=== PATIENT | female | born 1960 | race Caucasian/White ===

== ENCOUNTER 2018-01-06 19:49 | Observation (INO) ==
[2018-01-06] MEDS ORDERED: Aspirin 81 MG TAB.CHEW PO ONE (19:55)
--- NOTE | 2018-01-06 20:07 | Emergency Department Note ---
Disposition Clinical Impression: Palpitations Chest pain Qualifiers: Chest pain type: unspecified Qualified Code(s): R07.9 - Chest pain, unspecified Disposition: Admitted As Inpatient Condition: Good Chest Pain HPI - General Chief Complaint: ED Chest Pain Stated Complaint: Chest Pain Time Seen by Provider: 01/06/18 19:54 Source: patient Mode of arrival: private vehicle Limitations: no limitations Vital Signs Reviewed: Yes Nursing Notes Reviewed: Yes - History of Present Illness HPI Narrative: 57-year-old female past medical history of hypertension, diabetes, hyperlipidemia who presents to the ER with a chief complaint of chest pain and palpitations. Reports that she woke up and went to work at 4 AM. Around 9 AM she experienced palpitations and dizziness and felt like she was going to pass out. She was sent home and reports she took a four-hour nap and his felt drained ever since. Reports intermittent pressure in her chest. Denies any recent illnesses. No dyspnea, diaphoresis, nausea or vomiting. Reports her last stress test was roughly 16 years ago. No prior history of coronary artery disease, DVT or pulmonary embolism. No other complaints. Pt complaint: chest pain Onset (ago): hour(s) Duration: intermittent Onset: during rest Pain Location: substernal Severity: mild Severity scale (1-10): 4 Pain Radiation: none Improves with: nothing Worsens with: nothing Associated symptoms: Denies: nausea, vomiting, diaphoresis, dyspnea Treatments prior to arrival chest pain: none - Related Data Home Medications Medication Instructions Recorded Confirmed Atorvastatin Calcium [Lipitor] 20 mg PO HS 02/21/16 01/06/18 Chlorthalidone 25 mg PO DAILY 02/21/16 01/06/18 Enalapril Maleate [Vasotec] 20 mg PO DAILY 02/21/16 01/06/18 Metformin HCl [Metformin HCl ER] 1,500 mg PO QPM 02/21/16 01/06/18 Ranitidine HCl [Heartburn Relief] 150 mg PO BID 02/21/16 01/06/18 Allergies Allergy/AdvReac Type Severity Reaction Status Date / Time Sulfa (Sulfonamide Allergy Hives Verified 10/29/16 18:14 Antibiotics) nitrofurantoin AdvReac Vomiting Verified 10/29/16 18:14 [From Macrobid] All systems ED: reviewed and negative except as stated. Constitutional: Denies: fever Cardiovascular: Reports: chest pain, palpitations Respiratory: Denies: cough, dyspnea Gastrointestinal: Denies: abdominal pain, nausea, vomiting Chest Pain PMH - Past Medical History Medical history: Reports: arthritis, diabetes, GERD, hyperlipidemia, hypertension, renal disease Surgical history: Reports: , cholecystectomy, orthopedic, other, other Psychiatric history: Reports: no psych history IMAGING ASSISTANT history: Reports: no IMAGING ASSISTANT history - Social History Smoking Status: Never smoker Alcohol use: Reports: none Drug use: Reports: none Physical Exam - General Limitations: no limitations General appearance: alert, in no apparent distress - Head Head exam: atraumatic, normocephalic - Eye Eye exam: Present: normal appearance - ENT ENT exam: normal exam - Neck Neck exam: Present: normal inspection, full ROM - Chest Chest inspection: Present: normal inspection, symmetric chest wall rise - Respiratory Respiratory exam: Present: normal lung sounds bilaterally - Cardiovascular Cardiovascular exam: Present: regular rate, normal rhythm, normal heart sounds - Abdominal Exam Abdominal exam: Present: soft, Non-Tender. Absent: tenderness - Extremities Exam Extremities exam: Present: normal inspection, full ROM - Expanded Upper Extremity Exam Shoulder exam: Present: normal inspection, full ROM Arm exam: Present: normal inspection, full ROM Elbow exam: Present: normal inspection, full ROM Forearm/Wrist exam: Present: normal inspection, full ROM Hand exam: Present: normal inspection, full ROM - Expanded Lower Extremity Exam Hip/Pelvis exam: Present: normal inspection, full ROM Upper leg exam: Present: normal inspection, full ROM Knee exam: Present: normal inspection, full ROM Lower leg exam: Present: normal inspection, full ROM Ankle exam: Present: normal inspection, full ROM Foot/toe exam: Present: normal inspection, full ROM - Skin Skin exam: Present: warm, dry Course Course Narrative: Patient seen and examined. Vital signs reviewed. We will get an EKG, chest x- ray as well as labs including troponin, TSH and electrolytes. Patient provided with aspirin here. Vital Signs Temperature 97.9 F 01/06/18 19:50 Pulse Rate 75 01/06/18 19:50 Respiratory Rate 18 01/06/18 19:50 Blood Pressure 167/76 01/06/18 19:50 O2 Sat by Pulse Oximetry 98 01/06/18 19:50 Temperature 97.9 F 01/06/18 19:50 Pulse Rate 75 01/06/18 19:50 Respiratory Rate 18 01/06/18 19:50 Blood Pressure 167/76 01/06/18 19:50 O2 Sat by Pulse Oximetry 98 01/06/18 19:55 Oxygen Delivery Oxygen Delivery Room Air Chest Pain - MDM Narrative Medical decision making narrative: 57-year-old female with palpitations and chest pain throughout today. EKG is nonischemic. Chest x-ray unremarkable. Labs reviewed no acute derangements. She will be admitted to the hospitalist service for chest pain rule out and palpitations. - Lab Data Lab results reviewed: Yes I reviewed the patient's lab results. Result diagrams: 01/06/18 20:14 01/06/18 20:14 Lab Results 01/06/18 01/06/18 01/06/18 Range/Units 20:14 20:14 20:14 WBC 9.9 (4.3-11.1) K/mcL RBC 4.03 (3.82-4.97) M/mcL Hgb 12.1 (11.5-15.4) g/dL Hct 32.8 L (35.3-44.9) % MCV 81.4 L (83.0-100.0) fL MCH 30.0 (28.0-33.3) pg MCHC 36.9 H (31.6-35.5) g/dL RDW 12.2 (11.5-14.5) % Plt Count 335 (140-400) K/mcL MPV 9.9 (9.4-12.4) fL Immature Gran % 0.5 (0-4) % Seg Neutrophils % 46.0 % Lymphocytes % 39.2 % Monocytes % 9.3 % Eosinophils % 3.5 % Basophils % 1.5 % Neutrophils # 4.5 (1.6-8.9) K/mcL Lymphocytes # 3.9 (0.6-4.6) K/mcL Monocytes # 0.9 (0.0-1.3) K/mcL Eosinophils # 0.4 (0.0-0.6) K/mcL Basophils # 0.2 (0.0-0.2) K/mcL PT 11.0 (9.4-12.1) Seconds INR 1.0 APTT 24.9 L (26.0-36.0) Seconds Sodium (136-145) mEq/L Potassium (3.5-5.1) mEq/L Chloride (98-107) mEq/L Carbon Dioxide (23-29) mEq/L BUN (6-20) mg/dL Creatinine (0.60-1.20) mg/dL Est GFR ( Amer) (> 60) Est GFR (Non-Af Amer) (> 60) BUN/Creatinine Ratio (6-26) Glucose (70-105) mg/dL Calculated Osmolality (280-300) Calcium (8.6-10.3) mg/dL Troponin I (< 0.04) ng/mL B-Natriuretic Peptide 10 (Less than 100) pg/mL TSH (0.340-5.600) mcIU/mL 01/06/18 01/06/18 Range/Units 20:14 20:14 WBC (4.3-11.1) K/mcL RBC (3.82-4.97) M/mcL Hgb (11.5-15.4) g/dL Hct (35.3-44.9) % MCV (83.0-100.0) fL MCH (28.0-33.3) pg MCHC (31.6-35.5) g/dL RDW (11.5-14.5) % Plt Count (140-400) K/mcL MPV (9.4-12.4) fL Immature Gran % (0-4) % Seg Neutrophils % % Lymphocytes % % Monocytes % % Eosinophils % % Basophils % % Neutrophils # (1.6-8.9) K/mcL Lymphocytes # (0.6-4.6) K/mcL Monocytes # (0.0-1.3) K/mcL Eosinophils # (0.0-0.6) K/mcL Basophils # (0.0-0.2) K/mcL PT (9.4-12.1) Seconds INR APTT (26.0-36.0) Seconds Sodium 128 L (136-145) mEq/L Potassium 3.8 (3.5-5.1) mEq/L Chloride 95 L (98-107) mEq/L Carbon Dioxide 22 L (23-29) mEq/L BUN 21 H (6-20) mg/dL Creatinine 1.15 (0.60-1.20) mg/dL Est GFR ( Amer) 59 L (> 60) Est GFR (Non-Af Amer) 48 L (> 60) BUN/Creatinine Ratio 18 (6-26) Glucose 493 H (70-105) mg/dL Calculated Osmolality 291 (280-300) Calcium 9.0 (8.6-10.3) mg/dL Troponin I < 0.03 (< 0.04) ng/mL B-Natriuretic Peptide (Less than 100) pg/mL TSH 1.708 (0.340-5.600) mcIU/mL - Radiology Data Radiology results reviewed: Yes I reviewed the patient's radiology results. Chest X-Ray 01/06/18 19:55 IMPRESSION: No acute cardiopulmonary findings. D/ / Ton Coronado / Ton Coronado Interpreting Provider: Ton Coronado - EKG Data EKG attestation: Yes I reviewed and interpreted this EKG. EKG results narrative: EKG demonstrates sinus rhythm with a rate of 98 bpm. Normal axis. Normal intervals. Normal R-wave progression. No gross ST elevations or depressions. No acute ischemic findings. No significant changes from previous EKG dated . Heart Score - Score History: Moderately Suspicious EKG: Normal Age: 45-65 Risk Factors: Equal/Greater than 3 risk factor or history of atherosclerotic disease Troponin: Less than normal limit HEART Score Total: 4
[2018-01-06 20:27] LABS: Basophils # 0.2 K/mcL (0.0-0.2); Basophils % 1.5 %; Eosinophils # 0.4 K/mcL (0.0-0.6); Eosinophils % 3.5 %; Hematocrit 32.8 % (35.3-44.9); Hemoglobin 12.1 g/dL (11.5-15.4); Immature Granulocytes % 0.5 % (0-4); Lymphocytes # 3.9 K/mcL (0.6-4.6); Lymphocytes % 39.2 %; Mean Corpuscular HGB Conc 36.9 g/dL (31.6-35.5); Mean Corpuscular Volume 81.4 fL (83.0-100.0); Mean Platelet Volume 9.9 fL (9.4-12.4); Monocytes # 0.9 K/mcL (0.0-1.3); Monocytes % 9.3 %; Neutrophils # 4.5 K/mcL (1.6-8.9); Platelet Count 335 K/mcL (140-400); Red Blood Count 4.03 M/mcL (3.82-4.97); Red Cell Distribution Width 12.2 % (11.5-14.5)
--- NOTE | 2018-01-06 20:28 | Emergency Department Note ---
Disposition Clinical Impression: ACS (acute coronary syndrome) Disposition: Admitted As Inpatient Forms: ED Satisfaction Letter General Adult HPI - General Chief complaint: ED Chest Pain Stated complaint: Chest Pain Time Seen by Provider: 01/06/18 19:54 Source: patient Mode of arrival: private vehicle Limitations: no limitations - History of Present Illness Pain Scale: 4 - Related Data Home Medications Medication Instructions Recorded Confirmed Atorvastatin Calcium [Lipitor] 20 mg PO HS 02/21/16 02/21/16 Chlorthalidone 25 mg PO DAILY 02/21/16 02/21/16 Cyclobenzaprine [Flexeril] 10 mg PO HS PRN 02/21/16 02/21/16 Diclofenac Sodium [Voltaren] 1 appl TP TID PRN 02/21/16 02/21/16 Enalapril Maleate [Vasotec] 40 mg PO DAILY 02/21/16 02/21/16 Exenatide Microspheres [Bydureon] 2 mg SQ QWEEK 02/21/16 02/21/16 Gabapentin [Neurontin] 600 mg PO HS 02/21/16 02/21/16 GlipiZIDE [Glipizide Xl] 5 mg PO DAILY 02/21/16 02/21/16 Metformin HCl [Metformin HCl ER] 1,500 mg PO PMHY 02/21/16 02/21/16 Ranitidine HCl [Heartburn Relief] 150 mg PO BID 02/21/16 02/21/16 traMADol [Ultram] 50 mg PO Q6H PRN 02/21/16 02/21/16 Previous Rx's Medication Instructions Recorded levoFLOXacin [Levaquin] 500 mg PO DAILY #3 tablet 10/29/16 Allergies Allergy/AdvReac Type Severity Reaction Status Date / Time Sulfa (Sulfonamide Allergy Hives Verified 10/29/16 18:14 Antibiotics) nitrofurantoin AdvReac Vomiting Verified 10/29/16 18:14 [From Macrobid] Constitutional: Denies: fever Cardiovascular: Reports: chest pain, palpitations Respiratory: Denies: cough, dyspnea Gastrointestinal: Denies: abdominal pain, nausea, vomiting Past Medical History - Past Medical History Medical history: Reports: arthritis, diabetes, GERD, hyperlipidemia, hypertension, renal disease Surgical history: Reports: , cholecystectomy, orthopedic, other, other Psychiatric history: Reports: no psych history BOTTLE FEEDER history: Reports: no BOTTLE FEEDER history - Social History Smoking Status: Never smoker Alcohol use: Reports: none Drug use: Reports: none Physical Exam - General Limitations: no limitations General appearance: alert, in no apparent distress Course - Reevaluation(s) Reevaluation #1: Attestation Note I examined this patient and my medical decision-making was reviewed with the Resident Physician, JHON CHAMBERS. I agree with the documented findings, disposition and treatment plan as described except to the extent set forth below. I have personally performed a face to face evaluation on this patient. I have reviewed and agree with the care plan. Briefly: 55-year-old female heart score 4 presents with chest pain. Last stress was 15 years ago. EKG shows nonspecific ST-T changes but no acute ischemic changes when compared to an old EKG. Patient is screening labs including troponin and chest x-ray will be getting aspirin admission anticipated disposition pending Time: 20:26 Vital Signs Temperature 97.9 F 01/06/18 19:50 Pulse Rate 75 01/06/18 19:50 Respiratory Rate 18 01/06/18 19:50 Blood Pressure 167/76 01/06/18 19:50 O2 Sat by Pulse Oximetry 98 01/06/18 19:50 Temperature 97.9 F 01/06/18 19:50 Pulse Rate 75 01/06/18 19:50 Respiratory Rate 18 01/06/18 19:50 Blood Pressure 167/76 01/06/18 19:50 O2 Sat by Pulse Oximetry 98 01/06/18 19:50 Oxygen Delivery Oxygen Delivery Room Air
[2018-01-06 20:39] LABS: Activated Partial Thrombo Time 24.9 Seconds (26.0-36.0)
[2018-01-06 20:52] LABS: BUN/Creatinine Ratio 18 (6-26); Blood Urea Nitrogen 21 mg/dL (6-20); Carbon Dioxide 22 mEq/L (23-29); Chloride 95 mEq/L (98-107); Glucose 493 mg/dL (70-105); Osmolality,Calculated 291 (280-300); Potassium 3.8 mEq/L (3.5-5.1); Sodium 128 mEq/L (136-145); eGFR For African Americans 59 (> 60); eGFR For Non-African Americans 48 (> 60)
[2018-01-06 20:53] LABS: Troponin I < 0.03 ng/mL (< 0.04)
[2018-01-06] MEDS ORDERED: Acetaminophen 325 MG TABLET PO ONE (21:59)
[2018-01-07] MEDS ORDERED: Dextrose Gel 15 GM/37.5 ML TUBE PO PRN ×2 (00:04)
[2018-01-07] MEDS ORDERED: D5% in Water 1,000 ML IVC PRN (00:04)
[2018-01-07] MEDS ORDERED: *HR* Dextrose 50 % in Water (Syg) 50 ML SYRINGE IVP PRN (00:04)
[2018-01-07] MEDS ORDERED: Insulin LISPRO 300 UNITS/3 ML VIAL SQ SCH (00:15)
[2018-01-07] MEDS ORDERED: *HR* Enoxaparin 40 MG/0.4 ML SYRINGE SQ SCH (06:00)
--- NOTE | 2018-01-07 07:15 | Electrocardiograph Report ---
[place] [id number] Test Date: 2018-01-06 Pat Name: Geri Tilley Department: 102 Room: 3B43 Gender: F Java J[employer] Developer: Crystal : 1960 Requested By: Holden Flanagan Order Number: [id number] Reading MD: Eric Mejia Measurements Intervals Rhodes Rate: 98 P: 30 MS: 129 QRS: 16 QRSD: 101 T: 26 QT: 356 QTc: 411 Interpretive Statements SINUS RHYTHM POSSIBLE INFERIOR MYOCARDIAL INFARCTION, PROBABLY OLD Electronically Signed On 01-07-2018 7:14:06 EDT by Eric Mejia
[2018-01-07] MEDS ORDERED: Naloxone 0.4 MG/ML INJ IVP PRN (07:43)
[2018-01-07] MEDS ORDERED: Nitroglycerin 0.4 MG TAB.SUBL SL PRN (07:43)
--- NOTE | 2018-01-07 07:48 | Internal Med History&Physical ---
Date of Encounter: 01/07/18 Time of Encounter: 07:00 Internal Medicine - H&P: HPI Chief complaint: Chest pain Plans for Post Hospital Care: Home History of present illness: Ms. Tilley is a 57 year old female with pmh of hypertension, diabetes, hyperlipidemia presenting with complaints of chest pain that started yesterday morning around 4 am. she went to work and felt dizzy like she was going to pass out and went then subsequently went back home a couple of hours later. She noted she continued to have intermittent stabbing midsternal chest pain unreproducible to palpatin and her duaghter decided to bring her in. Chest pain is non radiating. Denies any nausea, vomiting or abdominal pain or any other acute symptoms Past Med Surg Social Fam HX - Past Medical History Medical history: arthritis, diabetes, GERD, hyperlipidemia, hypertension, renal disease Psychiatric history: no psych history - Past Surgical History Surgical History: , cholecystectomy, orthopedic, other, other - Social History Smoking Status: Never smoker Alcohol use: none Drug use: none - Family History Father Age: 68 Living Status: Hx Family Cardiac Disorders: Yes Internal Medicine - H&P: Meds Atorvastatin Calcium [Lipitor] 20 mg PO HS 02/21/16 [History] Chlorthalidone 25 mg PO DAILY 02/21/16 [History] Enalapril Maleate [Vasotec] 20 mg PO DAILY 02/21/16 [History] Metformin HCl [Metformin HCl ER] 1,500 mg PO QPM 02/21/16 [History] Ranitidine HCl [Heartburn Relief] 150 mg PO BID 02/21/16 [History] Aspirin 81 mg PO DAILY #30 tab.chew 01/07/18 [Rx] 3 Allergy/AdvReac Type Severity Reaction Status Date / Time Sulfa (Sulfonamide Allergy Hives Verified 10/29/16 18:14 Antibiotics) nitrofurantoin AdvReac Vomiting Verified 10/29/16 18:14 [From Macrobid] All Systems PM: A 10-system review of systems was performed and is negative for pertinent findings except as documented above in the HPI. - Constitutional Constitutional: no chills, no fever(s), no night sweats - EENT Eyes: no change in vision, no discharge, no pain, no photophobia Ears: no ear discharge, no ear pain, no tinnitus Nose, mouth and throat: no dysphagia, no nasal discharge, no neck pain, no sore throat - Cardiovascular Cardiovascular ROS IM: chest pain, lightheadedness, no diaphoresis, no dyspnea, no palpitations, no syncope Additional comments: admits to chest pain and lightheadedness - Respiratory Respiratory: no cough, no dyspnea, no wheezing, no excessive phlegm production - Gastrointestinal Gastrointestinal: no abdominal pain, no diarrhea, no hematemesis, no hematochezia, no melena, no nausea, no vomiting - Genitourinary Genitourinary: no change in urinary stream, no dysuria, no flank pain, no hematuria - Musculoskeletal Musculoskeletal ROS IM: no numbness, no tingling - Integumentary Integumentary IM: no rash, no unusual bruising - Neurological Neurological ROS: no confusion, no convulsions, no focal weakness, no numbness, no tingling, no tremor(s) - Hematologic/Lymphatic Hematologic/Lymphatic: no easy bruising - Constitutional Vitals: Temp Pulse Resp BP Pulse Ox 97.6 F 78 14 123/70 98 01/07/18 06:56 01/07/18 06:56 01/07/18 06:56 01/07/18 06:56 01/07/18 06:56 - Head Head exam: Present: atraumatic, normocephalic - Eye Eye exam: Present: PERRL, conjuntiva pink, sclera anicteric Pupils: Present: PERRL - Neck Neck exam general surgery: Present: supple, trachea midline. Absent: lymphadenopathy - Respiratory Respiratory exam: Present: CTAB. Absent: accessory muscle use, rales, rhonchi, wheezes - Cardiovascular Cardiovascular exam: Present: RRR, +S1, +S2. Absent: diastolic murmur, gallop, rubs, systolic murmur - GI/Abdominal GI/Abdominal exam: Present: normal bowel sounds, soft, no peritoneal signs. Absent: distended, tenderness - Extremities Exam Extremities exam: Present: warm, radial pulses palpable and symmetrical. Absent : calf tenderness, cyanotic, pedal edema - Neurological Exam Neurological exam: Present: CN II-XII intact, oriented X3, no focal deficits. Absent: pronater drift, facial droop, speech deficit - Skin Skin exam: Present: dry, intact Internal Med - H&P Results - Labs CBC & Chem 7: 01/06/18 20:14 01/06/18 20:14 Labs: Cardiac Enzymes 01/07/18 01/07/18 Range/Units 01:15 06:58 Troponin I < 0.03 < 0.03 (< 0.04) ng/mL - VTE Deep Vein Thrombosis/Pulmonary Embolism Present on Admission: No - Assessment and plan (1) Chest pain Current Visit: Yes Status: Acute Assessment and plan: Chest pain r/o SC. Pt has risk factors for CAD such as DM, hypertension, dyslipidemia. Start on aspirin, continue statin. Obtain 2D echo and nuclear stress test. Nitroglycerin prn pain Qualifiers: Chest pain type: unspecified Qualified Code(s): R07.9 - Chest pain, unspecified (2) Hypertension Current Visit: Yes Status: Acute Assessment and plan: Stable. continue home antihypertensives Qualifiers: Hypertension type: essential hypertension Qualified Code(s): I10 - Essential (primary) hypertension (3) Diabetes Current Visit: Yes Status: Acute Assessment and plan: Continue insulin sliding scale Qualifiers: Qualified Code(s): E11.9 - Type 2 diabetes mellitus without complications (4) Dyslipidemia Current Visit: Yes Status: Acute Assessment and plan: Continue statin - Time Spent With Patient Total time spent is greater than 50% in coordination of care (as documented) at patient's floor/unit and/or counseling patient:
[2018-01-07] MEDS ORDERED: Regadenoson 0.4 MG/5 ML SYRINGE IVP ONE (08:53)
[2018-01-07] MEDS ORDERED: Lisinopril 20 MG TABLET PO SCH (09:00)
[2018-01-07] MEDS ORDERED: Famotidine 20 MG TABLET PO SCH (09:00)
[2018-01-07] MEDS ORDERED: Aspirin 81 MG TAB.CHEW PO SCH (09:00)
[2018-01-07] MEDS: Insulin LISPRO 300 UNITS/3 ML VIAL SQ SCH ×2 (10:02→12:14)
[2018-01-07] MEDS ORDERED: Acetaminophen 325 MG TABLET PO PRN (10:23)
[2018-01-07 11:45] VITALS: BP 121/75
--- NOTE | 2018-01-07 14:07 | Discharge Summary ---
Orders not resulted at time of discharge: Pending orders 01/07/18 07:36 NM bola perf SPECT multi [NM] Routine EV echocardiogram Routine 01/08/18 04:00 Basic Metabolic Panel AM 0400 CBC [Complete Blood Count] [HEME] AM 04001/09/18 04:00 Basic Metabolic Panel AM 0400 CBC [Complete Blood Count] [HEME] AM 04001/10/18 04:00 Basic Metabolic Panel AM 0400 CBC [Complete Blood Count] [HEME] AM 04001/11/18 04:00 Basic Metabolic Panel AM 0400 CBC [Complete Blood Count] [HEME] AM 04001/12/18 04:00 Basic Metabolic Panel AM 0400 CBC [Complete Blood Count] [HEME] AM 04001/13/18 04:00 Basic Metabolic Panel AM 0400 CBC [Complete Blood Count] [HEME] AM 040 Date of Encounter: 01/07/18 Time of Encounter: 14:00 - Discharge Diagnosis (1) Chest pain Priority: Primary Status: Acute Assessment and Plan: 57 year old female came inn for substernal chest pain of 1 day duration. Has risk factors including htn, dyslipidemia and diabetes. Had a nuclear stress test which came back with no signs of ischemia. Was discharged home on aspirin. Counseled to f/u with cardiology Qualifiers: Chest pain type: unspecified Qualified Code(s): R07.9 - Chest pain, unspecified (2) Hypertension Priority: Secondary Status: Acute Qualifiers: Hypertension type: essential hypertension Qualified Code(s): I10 - Essential (primary) hypertension (3) Diabetes Priority: Secondary Status: Acute Assessment and Plan: Continue insulin sliding scale Qualifiers: Diabetes mellitus type: type 2 Diabetes mellitus complication status: without complication Qualified Code(s): E11.9 - Type 2 diabetes mellitus without complications (4) Dyslipidemia Priority: Secondary Status: Acute Assessment and Plan: Continue statin Hospital course: Ms. Tilley is a 57 year old female - Time Spent with Patient Total time spent providing and/or coordinating discharge services: - Discharge Medications Prescriptions: Aspirin 81 mg PO DAILY #30 tab.chew Home Medications: Atorvastatin Calcium [Lipitor] 20 mg PO HS 02/21/16 [History] Chlorthalidone 25 mg PO DAILY 02/21/16 [History] Enalapril Maleate [Vasotec] 20 mg PO DAILY 02/21/16 [History] Metformin HCl [Metformin HCl ER] 1,500 mg PO QPM 02/21/16 [History] Ranitidine HCl [Heartburn Relief] 150 mg PO BID 02/21/16 [History] Aspirin 81 mg PO DAILY #30 tab.chew 01/07/18 [Rx] Allergies/Adverse Reactions: 3 Allergy/AdvReac Type Severity Reaction Status Date / Time Sulfa (Sulfonamide Allergy Hives Verified 10/29/16 18:14 Antibiotics) nitrofurantoin AdvReac Vomiting Verified 10/29/16 18:14 [From Macrobid] Date of admission: 01/06/18 21:42 Primary care physician: Sera Olivarez - Constitutional Vitals: Temp Pulse Resp BP Pulse Ox 98.2 F 85 14 121/75 98 01/07/18 11:42 01/07/18 11:42 01/07/18 11:42 01/07/18 11:42 01/07/18 11:42 - Head Head exam: Present: atraumatic, normocephalic - Eye Eye exam: Present: PERRL, conjuntiva pink, sclera anicteric Pupils: Present: PERRL - Neck Neck exam general surgery: Present: supple, trachea midline. Absent: lymphadenopathy - Respiratory Respiratory exam: Present: CTAB. Absent: accessory muscle use, rales, rhonchi, wheezes - Cardiovascular Cardiovascular exam: Present: RRR, +S1, +S2. Absent: diastolic murmur, gallop, rubs, systolic murmur - GI/Abdominal GI/Abdominal exam: Present: normal bowel sounds, soft, no peritoneal signs. Absent: distended, tenderness - Extremities Exam Extremities exam: Present: warm, radial pulses palpable and symmetrical. Absent : calf tenderness, cyanotic, pedal edema - Neurological Exam Neurological exam: Present: CN II-XII intact, oriented X3, no focal deficits. Absent: pronater drift, facial droop, speech deficit - Skin Skin exam: Present: dry, intact - Patient Status Disposition: Home, Self-Care Condition: Good - Discharge Instructions Instructions: Chest Pain (DC) Follow Up With: Sera Tapia MD [Primary Care Provider] - 01/16/18 11:45 am Amy Flynn [Partnered Physician] - (cardiology office will call [facility] appointment) Forms: Work/School Release - VTE Deep Vein Thrombosis/Pulmonary Embolism Present on Admission: No
== END 2018-01-07 15:26 | disposition home or self-care (01) ==
LOC: 3BNU 19:49 → EMEROO 19:49 → 3BNU 23:09
PROVIDERS: ADMIT Internal Medicine; ATTEND Internal Medicine

== ENCOUNTER 2019-01-19 12:28 | Observation (INO) ==
--- NOTE | 2019-01-19 13:39 | Emergency Department Note ---
Disposition Clinical Impression: Lightheaded Nausea and vomiting Qualifiers: Vomiting type: unspecified Vomiting Intractability: non-intractable Qualified Code(s): R11.2 - Nausea with vomiting, unspecified Chest pain Qualifiers: Chest pain type: unspecified Qualified Code(s): R07.9 - Chest pain, unspecified Disposition: Admitted As Inpatient Time of Disposition: 15:59 General Adult HPI - General Chief complaint: ED Chest Pain Stated complaint: CP,"dizzy,vomiting" Time Seen by Provider: 01/19/19 13:36 Source: patient, family Mode of arrival: private vehicle Limitations: no limitations Nursing Notes Reviewed: Yes Vital Signs Reviewed: Yes - History of Present Illness HPI Narrative: Patient is a 58-year-old female with past medical history including coronary artery disease status post stent placement to the RCA in July 2018 on aspirin and Plavix, hypertension, diabetes mellitus type 2, presenting with chief complaint of chest pain and nausea and vomiting. Patient states for the past 3 days, she complains of nausea and multiple episodes of nonbilious nonbloody vomiting. She denies any abdominal pain, fevers or chills. She states every time she stands up to walk around she develops right-sided chest pain. She states that lasts for seconds. She also complains of lightheadedness and feeling like she is going to pass out. She states she has never felt this way before. She denies cough, fevers or chills, abdominal pain, diarrhea, blood in her stool, dysuria, weakness, paresthesias. Pain Scale: 0 - Related Data Home Medications Medication Instructions Recorded Confirmed Enalapril Maleate [Vasotec] 5 mg PO DAILY 02/21/16 01/19/19 Metformin HCl [Metformin ER 1,500 mg PO HS 02/21/16 01/19/19 Gastric] Ranitidine HCl [Heartburn Relief] 150 mg PO BID 02/21/16 01/19/19 Cyclobenzaprine [Flexeril] 10 mg PO HS 08/13/18 01/19/19 Tramadol HCl [Ultram] 50 mg PO TID PRN 08/13/18 01/19/19 Aspirin 81 mg PO DAILY 01/19/19 01/19/19 Atorvastatin [Lipitor] 40 mg PO HS 01/19/19 01/19/19 Chlorthalidone 25 mg PO DAILY 01/19/19 01/19/19 Clopidogrel [Plavix] 75 mg PO DAILY 01/19/19 01/19/19 Metoprolol [Lopressor] 12.5 mg PO BID 01/19/19 01/19/19 Allergies Allergy/AdvReac Type Severity Reaction Status Date / Time Sulfa (Sulfonamide Allergy Hives Verified 09/08/18 10:24 Antibiotics) nitrofurantoin AdvReac Vomiting Verified 09/08/18 10:24 [From Macrobid] All systems ED: reviewed and negative except as stated. Review of Systems: As Per HPI Constitutional: Denies: fever, chills Cardiovascular: Reports: chest pain Respiratory: Reports: dyspnea. Denies: cough Gastrointestinal: Reports: abdominal pain, nausea, vomiting. Denies: diarrhea Genitourinary: Denies: dysuria Musculoskeletal: Denies: back pain Past Medical History - Past Medical History Attestation: Yes The following information was validated with the patient. Source: patient Medical history: Reports: arthritis, diabetes, GERD, hyperlipidemia, hypertension, renal disease Surgical history: Reports: , cholecystectomy, orthopedic, other, other Psychiatric history: Reports: no psych history CROSSING WATCHMAN history: Reports: no CROSSING WATCHMAN history - Social History Smoking Status: Never smoker Alcohol use: Reports: none Drug use: Reports: none Physical Exam - General Limitations: no limitations General appearance: alert, in no apparent distress - Head Head exam: atraumatic, normocephalic - Eye Eye exam: Present: normal appearance, EOMI - ENT ENT exam: normal exam, normal oropharynx - Neck Neck exam: Present: normal inspection, trachea midline - Chest Chest inspection: Present: normal inspection, symmetric chest wall rise. Absent: tenderness - Respiratory Respiratory exam: Present: normal lung sounds bilaterally. Absent: respiratory distress, wheezes - Cardiovascular Cardiovascular exam: Present: regular rate, normal rhythm - Abdominal Exam Abdominal exam: Present: soft, Non-Tender. Absent: distention, guarding, rebound, rigidity - Extremities Exam Extremities exam: Present: normal capillary refill. Absent: pedal edema, calf tenderness - Neurological Exam Neurological exam: Present: alert, oriented X3 - Psychiatric Psychiatric exam: Present: normal affect, normal mood - Skin Skin exam: Present: warm, dry. Absent: diaphoresis, pallor Course Vital Signs Temperature 97.6 F 01/19/19 12:34 Pulse Rate 96 01/19/19 12:34 Respiratory Rate 18 01/19/19 12:34 Blood Pressure 145/80 01/19/19 12:34 O2 Sat by Pulse Oximetry 98 01/19/19 12:34 Temperature 97.6 F 01/19/19 12:34 Pulse Rate 90 01/19/19 15:07 Respiratory Rate 18 01/19/19 12:34 Blood Pressure 133/75 01/19/19 15:07 O2 Sat by Pulse Oximetry 100 01/19/19 15:07 Oxygen Delivery Oxygen Delivery Room Air Medical Decision Making - MDM Narrative Medical decision making narrative: Patient is presenting with intermittent episodes of nausea and vomiting, chest pain with exertion as well as lightheadedness when she stands and walks around. She is afebrile, states she has never had these symptoms before. She does have history of coronary artery disease with one stent placed in her RCA. We will obtain ACS workup. EKG shows no acute ischemic changes. We will obtain troponin, CBC, BMP, hepatic panel, lipase, CXR. Anticipate admission for ACS given her extensive history. We will give her Zofran for nausea and IV fluids and she is mildly tachycardic. She states she has not eaten much in several days if she is unable to keep anything down. Patient also denies abdominal pain or abnormal bowel movements. 15:00 Labs and imaging reviewed. Chest x-ray shows no acute cardiopulmonary abnormality. Troponin less than 0.03. Normal hepatic panel and lipase. We will admit the patient for ACS workup. She has not had any vomiting here. Urine is pending. Patient has not received any antinausea medication or IVFs. Patient also states she has had no chest pain sitting at rest while here. She likely has MYAH secondary to dehydration. She will receive a liter of IV fluids. 15:45 Discussed with hospitalist, Dr. Nguyen, who accepts admission for ACS workup, lightheadedness, and nausea and vomiting. - Medical Records Medical records reviewed: Yes I reviewed the patient's medical records. - Lab Data Lab results reviewed: Yes I reviewed the patient's lab results. Result diagrams: 01/19/19 13:45 01/19/19 13:45 Lab Results 01/19/19 01/19/19 01/19/19 Range/Units 13:45 13:45 13:45 WBC 11.3 H (4.3-11.1) K/mcL RBC 4.72 (3.82-4.97) M/mcL Hgb 13.4 (11.5-15.4) g/dL Hct 39.0 (35.3-44.9) % MCV 82.6 L (83.0-100.0) fL MCH 28.4 (28.0-33.3) pg MCHC 34.4 (31.6-35.5) g/dL RDW 13.0 (11.5-14.5) % Plt Count 351 (140-400) K/mcL MPV 9.7 (9.4-12.4) fL Immature Gran % 0.4 (0-4) % Seg Neutrophils % 73.5 % Lymphocytes % 15.5 % Monocytes % 7.0 % Eosinophils % 2.6 % Basophils % 1.0 % Neutrophils # 8.3 (1.6-8.9) K/mcL Lymphocytes # 1.7 (0.6-4.6) K/mcL Monocytes # 0.8 (0.0-1.3) K/mcL Eosinophils # 0.3 (0.0-0.6) K/mcL Basophils # 0.1 (0.0-0.2) K/mcL Sodium 136 (136-145) mEq/L Potassium 3.8 (3.5-5.1) mEq/L Chloride 99 (98-107) mEq/L Carbon Dioxide 24 (23-29) mEq/L BUN 16 (8-23) mg/dL Creatinine 1.22 H (0.60-1.20) mg/dL Est GFR ( Amer) 55 L (> 60) Est GFR (Non-Af Amer) 45 L (> 60) BUN/Creatinine Ratio 13 (6-26) Glucose 119 H (70-105) mg/dL Calculated Osmolality 284 (280-300) Calcium 10.0 (8.6-10.3) mg/dL Total Bilirubin 0.6 (0.3-1.0) mg/dL Direct Bilirubin 0.1 (0.0-0.2) mg/dL Indirect Bilirubin 0.5 (0.0-1.2) mg/dL AST 18 (13-39) Units/L ALT 15 (7-52) Units/L Alkaline Phosphatase 80 (34-104) Units/L Troponin I < 0.03 (< 0.04) ng/mL B-Natriuretic Peptide 18 (Less than 100) pg/mL Serum Total Protein 7.7 (6.4-8.9) g/dL Albumin 4.6 (3.5-5.7) g/dL Globulin 3.1 (2.4-3.5) g/dL Albumin/Globulin Ratio 1.5 (1.1-2.2) Lipase 59 (11-82) Units/L Urine Color (Yellow) Urine Clarity (Clear) Urine pH (5.0-8.0) pH Units Ur Specific [place] (1.010-1.025) Urine Protein (Neg-Trace) mg/dL Urine Glucose (UA) (Normal) mg/dL Urine Ketones (Negative) mg/dL Urine Blood (Negative) Urine Nitrite (Negative) Urine Bilirubin (Negative) Urine Urobilinogen (Normal) mg/dL Ur Leukocyte Esterase (Negative) 01/19/19 Range/Units 15:05 WBC (4.3-11.1) K/mcL RBC (3.82-4.97) M/mcL Hgb (11.5-15.4) g/dL Hct (35.3-44.9) % MCV (83.0-100.0) fL MCH (28.0-33.3) pg MCHC (31.6-35.5) g/dL RDW (11.5-14.5) % Plt Count (140-400) K/mcL MPV (9.4-12.4) fL Immature Gran % (0-4) % Seg Neutrophils % % Lymphocytes % % Monocytes % % Eosinophils % % Basophils % % Neutrophils # (1.6-8.9) K/mcL Lymphocytes # (0.6-4.6) K/mcL Monocytes # (0.0-1.3) K/mcL Eosinophils # (0.0-0.6) K/mcL Basophils # (0.0-0.2) K/mcL Sodium (136-145) mEq/L Potassium (3.5-5.1) mEq/L Chloride (98-107) mEq/L Carbon Dioxide (23-29) mEq/L BUN (8-23) mg/dL Creatinine (0.60-1.20) mg/dL Est GFR ( Amer) (> 60) Est GFR (Non-Af Amer) (> 60) BUN/Creatinine Ratio (6-26) Glucose (70-105) mg/dL Calculated Osmolality (280-300) Calcium (8.6-10.3) mg/dL Total Bilirubin (0.3-1.0) mg/dL Direct Bilirubin (0.0-0.2) mg/dL Indirect Bilirubin (0.0-1.2) mg/dL AST (13-39) Units/L ALT (7-52) Units/L Alkaline Phosphatase (34-104) Units/L Troponin I (< 0.04) ng/mL B-Natriuretic Peptide (Less than 100) pg/mL Serum Total Protein (6.4-8.9) g/dL Albumin (3.5-5.7) g/dL Globulin (2.4-3.5) g/dL Albumin/Globulin Ratio (1.1-2.2) Lipase (11-82) Units/L Urine Color Dark Yellow (Yellow) Urine Clarity Slightly Hazy (Clear) Urine pH 5.5 (5.0-8.0) pH Units Ur Specific [place] 1.019 (1.010-1.025) Urine Protein 30 H (Neg-Trace) mg/dL Urine Glucose (UA) Normal (Normal) mg/dL Urine Ketones Trace H (Negative) mg/dL Urine Blood Negative (Negative) Urine Nitrite Negative (Negative) Urine Bilirubin Small H (Negative) Urine Urobilinogen Normal (Normal) mg/dL Ur Leukocyte Esterase Moderate H (Negative) - Radiology Data Radiology results reviewed: Yes I reviewed the patient's radiology results. Chest X-Ray 01/19/19 12:59 IMPRESSION: No acute cardiopulmonary process. D/ / 01/19/2019 13:53:44 Morris Escalante MD / Yaquelin Baptiste Interpreting Provider: Morris Escalante MD - EKG Data EKG #1 EKG attestation: Yes I reviewed and interpreted this EKG. EKG results narrative: EKG obtained at 1243 shows sinus tachycardia with heart rate 103, W[place] interval 158, QTC 398, low voltage, no ST elevation, no ST depression, T wave inversion in lead 3. Compared to old EKG on 09/08/2018. The T-wave inversion in lead 3 is new. Attestation Statement - Attestation Attestation: Patient was seen with resident physician. I reviewed the history, physical, assessment and plan, and agree with the findings. I also personally evaluated this patient and had [id number] time with this patient. 58-year-old female presents emergency Department chief complaint of nausea vomiting and chest pain. Patient states she has had nausea and vomiting for last couple days. No abdominal pain. She said she has had sharp twinges of chest pain on the right side. Lasting seconds exertional in nature. No diaphoresis with this. Pain is not reproducible. Patient has a history of stent placement in July of last year. Review of systems as above remainder negative. Physical exam vital signs are stable. ENT is unremarkable. Heart regular rhythm and rate. Lungs clear. Abdomen is soft and nontender. Extremities unremarkable. Neurologically intact. Skin no rashes. Psych normal. ED course. We will do a cardiac workup and also get some belly labs. Initial EKG showed no acute ischemic changes. Lab workup including troponin was largely unremarkable. Patient had no chest pain while in the emergency department. Though the pain is atypical the concern of course is that she just had stents. Her nausea was improved but she still had those episodes that we are concerned about. Ultimately we opted to admit the patient for chest pain ACS rule out. Also for further intervention as indicated. Patient's nausea was controlled time of admission. I agree with resident physician assessment and plan..
[2019-01-19] MEDS ORDERED: Aspirin 81 MG TAB.CHEW PO ONE (13:50)
[2019-01-19] MEDS ORDERED: Ondansetron 4 MG/2 ML VIAL IVP ONE (14:10)
[2019-01-19 14:14] LABS: Basophils # 0.1 K/mcL (0.0-0.2); Eosinophils # 0.3 K/mcL (0.0-0.6); Eosinophils % 2.6 %; Hemoglobin 13.4 g/dL (11.5-15.4); Immature Granulocytes % 0.4 % (0-4); Lymphocytes # 1.7 K/mcL (0.6-4.6); Lymphocytes % 15.5 %; Mean Corpuscular HGB Conc 34.4 g/dL (31.6-35.5); Mean Corpuscular Hemoglobin 28.4 pg (28.0-33.3); Mean Corpuscular Volume 82.6 fL (83.0-100.0); Mean Platelet Volume 9.7 fL (9.4-12.4); Monocytes # 0.8 K/mcL (0.0-1.3); Neutrophils # 8.3 K/mcL (1.6-8.9); Platelet Count 351 K/mcL (140-400); Red Blood Count 4.72 M/mcL (3.82-4.97); Segmented Neutrophils % 73.5 %
[2019-01-19] MEDS ORDERED: 0.9 % Sodium Chloride 1,000 ML IVC ONE (14:24)
[2019-01-19 14:27] LABS: Alanine Aminotransferase 15 Units/L (7-52); Albumin 4.6 g/dL (3.5-5.7); Albumin/Globulin Ratio 1.5 (1.1-2.2); Alkaline Phosphatase 80 Units/L (34-104); Aspartate Amino Transferase 18 Units/L (13-39); BUN/Creatinine Ratio 13 (6-26); Bilirubin,Direct 0.1 mg/dL (0.0-0.2); Bilirubin,Indirect 0.5 mg/dL (0.0-1.2); Bilirubin,Total 0.6 mg/dL (0.3-1.0); Blood Urea Nitrogen 16 mg/dL (8-23); Carbon Dioxide 24 mEq/L (23-29); Chloride 99 mEq/L (98-107); Globulin 3.1 g/dL (2.4-3.5); Glucose 119 mg/dL (70-105); Lipase 59 Units/L (11-82); Osmolality,Calculated 284 (280-300); Potassium 3.8 mEq/L (3.5-5.1); Sodium 136 mEq/L (136-145); Total Protein 7.7 g/dL (6.4-8.9); eGFR For Non-African Americans 45 (> 60)
[2019-01-19 14:28] LABS: Troponin I < 0.03 ng/mL (< 0.04)
[2019-01-19 16:00] LABS: Bacteria,Urine None Seen per hpf (None-Few); Bilirubin,Urine Small (Negative); Blood,Urine Negative (Negative); Color,Urine Dark Yellow (Yellow); Glucose,Urine (UA) Normal (Normal); Hyaline Casts,Urine Few per lpf (None-Few); Ketones,Urine Trace mg/dL (Negative); Leukocyte Esterase,Urine Moderate (Negative); Nitrite,Urine Negative (Negative); PH,Urine 5.5 pH Units (5.0-8.0); Protein,Urine 30 mg/dL (Neg-Trace); Specific Gravity,Urine 1.019 (1.010-1.025); Squamous Epithelial Cell,Urine Many per lpf (None-Few); Urobilinogen,Urine Normal (Normal)
[2019-01-19 16:04] LABS: Clarity,Urine Slightly Hazy (Clear)
[2019-01-19 16:18] LABS: RBC,Urine 0-3 per hpf (0-3)
--- NOTE | 2019-01-19 17:09 | Internal Med History&Physical ---
<Chris Stewart Adam - Last Filed: 01/19/19 18:15> Date of Encounter: 01/19/19 Time of Encounter: 17:02 Internal Medicine - H&P: HPI Chief complaint: chest pain Admitted From: Emergency Dept History of present illness: Ms. Tilley is a 58 year old female with PMH of CAD s/p ALEKS to RCA in Jul 2018, HTN, DM, and CKD 3, admitted for chest pain. Reports a 3 day history of central and right-sided chest pain both on exertion and at rest. Associated with ight-headedness, diaphoresis, nausea, and vomiting. The pain last a few seconds and then resolves. She has been on aspirin and plavix. Reports poor PO intake due to these symptoms. Reports similar episodes when she had her stent placed in Jul, and states that at that time she just felt dehydrated. Denies fevers, chills, abdominal pain, diarrhea, constipation, dysuria, and edema. No sick contacts. Received 1L NS, 324mg aspirin, and 4mg zofran in ED. Past cardiac hx includes LHC in Jul 2018 with 80% blockage in RCA and ALEKS, 60% blockage noted in LAD. Echo in Jul 2018 with LVEF 60-65%, mild concentric LVH, mild LVDD, and trace NE. Patient would like CODE STATUS to be [id number]. Past Med Surg Social Fam HX - Past Medical History Medical history: arthritis, diabetes, GERD, hyperlipidemia, hypertension, renal disease Psychiatric history: no psych history - Past Surgical History Surgical History: , cholecystectomy, orthopedic, other, other Additional surgical history: Heart cath 08/14 with 1 stent placed, plate in neck, 3 rotator cuff surgeries - Social History Smoking Status: Never smoker Alcohol use: none Drug use: none - Family History Father Family Member Ethnicity: Non- Living Status: Hx Family Cardiac Disorders: Yes Hx Family Respiratory Disorders: No Hx Family Cancer: No Hx Family GI Disorders: No Hx Family Endocrine Disorder: No Hx Family Neuromuscular Disorders: No Hx Family Neurologic Disorders: No Hx Family HEENT Disorders: No Hx Family Autoimmune Disorders: No Internal Medicine - H&P: Meds Enalapril Maleate [Vasotec] 5 mg PO DAILY 02/21/16 [History] Metformin HCl [Metformin ER Gastric] 1,500 mg PO HS 02/21/16 [History] Ranitidine HCl [Heartburn Relief] 150 mg PO BID 02/21/16 [History] Cyclobenzaprine [Flexeril] 10 mg PO HS 08/13/18 [History] Tramadol HCl [Ultram] 50 mg PO TID PRN 08/13/18 [History] Aspirin 81 mg PO DAILY 01/19/19 [History] Atorvastatin [Lipitor] 40 mg PO HS 01/19/19 [History] Chlorthalidone 25 mg PO DAILY 01/19/19 [History] Clopidogrel [Plavix] 75 mg PO DAILY 01/19/19 [History] Metoprolol [Lopressor] 12.5 mg PO BID 01/19/19 [History] Allergy/AdvReac Type Severity Reaction Status Date / Time Sulfa (Sulfonamide Allergy Hives Verified 09/08/18 10:24 Antibiotics) nitrofurantoin AdvReac Vomiting Verified 09/08/18 10:24 [From Macrobid] All Systems PM: A 10-system review of systems was performed and is negative for pertinent findings except as documented above in the HPI. - Constitutional Vitals: Temp Pulse Resp BP Pulse Ox 97.6 F 88 16 111/79 98 01/19/19 12:34 01/19/19 16:52 01/19/19 16:52 01/19/19 16:52 01/19/19 16:52 Exam: GEN: No acute distress, A&O3 HEAD: Atraumatic, normocephalic EYES: Pupils symmetric, sclera white, conjunctiva pink HEART: RRR, normal S1 and S2, no murmurs LUNGS: Clear to auscultation bilaterally, no wheezes, rhonchi, or crackles ABD: Soft, nontender, nondistended, bowel sounds present EXT: No edema noted, pulses 2/4 NEURO: No focal deficits, cooperative with exam Internal Med - H&P Results - Labs CBC & Chem 7: 01/19/19 13:45 01/19/19 13:45 Labs: Short CBC 01/19/19 Range/Units 13:45 WBC 11.3 H (4.3-11.1) K/mcL Hgb 13.4 (11.5-15.4) g/dL Hct 39.0 (35.3-44.9) % Plt Count 351 (140-400) K/mcL Neutrophils # 8.3 (1.6-8.9) K/mcL BMP 01/19/19 13:45 Sodium 136 Potassium 3.8 Chloride 99 Carbon Dioxide 24 BUN 16 Creatinine 1.22 H Glucose 119 H Calcium 10.0 Cardiac Enzymes 01/19/19 Range/Units 13:45 Troponin I < 0.03 (< 0.04) ng/mL Liver Function 01/19/19 Range/Units 13:45 Total Bilirubin 0.6 (0.3-1.0) mg/dL Direct Bilirubin 0.1 (0.0-0.2) mg/dL AST 18 (13-39) Units/L ALT 15 (7-52) Units/L Alkaline Phosphatase 80 (34-104) Units/L Albumin 4.6 (3.5-5.7) g/dL Urine 01/19/19 Range/Units 15:05 Urine Color Dark Yellow (Yellow) Urine Clarity Slightly Hazy (Clear) Urine pH 5.5 (5.0-8.0) pH Units Ur Specific [place] 1.019 (1.010-1.025) Urine Protein 30 H (Neg-Trace) mg/dL Urine Glucose (UA) Normal (Normal) mg/dL - Impressions ITS Impressions Chest X-Ray 01/19/19 12:59 IMPRESSION: No acute cardiopulmonary process. D/ / 01/19/2019 13:53:44 Morris Escalante MD / Yaquelin Baptiste Interpreting Provider: Morris Escalante MD - Assessment and Plan (1) Chest pain Current Visit: Yes Status: Acute Assessment and plan: Chest pain associated with light-headeness, diaphoresis, N/V EKG without ST changes, isolated T wave inversions in lead III Initial troponin negative Hx of CAD and ALEKS to RCA in Jul 2018 - at that time also had negative trop, normal EKG, and felt dehydrated - had a negative stress 6 months prior to [facility] BP controlled, no tachycardia Continue ASA and plavix Trend troponin Q6h Check AM EKG Continuous telemetry NPO at midnight for possible imaging in AM Consult to cardiolgy for further eval and recommendations on imaging Qualifiers: Chest pain type: unspecified Qualified Code(s): R07.9 - Chest pain, unspecified (2) CAD (coronary artery disease) Current Visit: Yes Status: Chronic Assessment and plan: Hx of CAD Echo Jul 2018: LVEF 60-65%, mild concentric LVH, mild LV DD, and trace NE LHC Jul 2018: 80% blockage in RCA with ALEKS placed, 60% blockage noted in LAD Stress December 2017: negative for ischemia or infarct Continue ASA and Plavix Qualifiers: Coronary Disease-Associated Artery/Lesion type: [place] artery [place] vs. transplanted heart: [place] heart Associated angina: with stable angina Qualified Code(s): I25.118 - Atherosclerotic heart disease of [place] coronary artery with other forms of angina pectoris (3) Nausea and vomiting Current Visit: Yes Status: Acute Assessment and plan: Nausea and NB/NB emesis Will provide PRN zofran and IV fluids Qualifiers: Vomiting type: unspecified Vomiting Intractability: non-intractable Qualified Code(s): R11.2 - Nausea with vomiting, unspecified (4) Diabetes Current Visit: Yes Status: Chronic Assessment and plan: Hold metformin Place on low-dose SSI Qualifiers: Diabetes mellitus type: type 2 Diabetes mellitus long-term insulin use: without technician terminal and repeater use Diabetes mellitus complication status: without complication Qualified Code(s): E11.9 - Type 2 diabetes mellitus without complications (5) Lightheaded Current Visit: Yes Status: Acute Assessment and plan: Likely secondary to chest pain, N/V, and dehydration No recent medication changes Will continue to monitor at this time (6) Hypertension Current Visit: Yes Status: Chronic Assessment and plan: Controlled at this time Continue home medications Qualifiers: Hypertension type: essential hypertension Qualified Code(s): I10 - Essential (primary) hypertension (7) Hyperlipidemia Current Visit: Yes Status: Acute Assessment and plan: Continue home med Qualifiers: Hyperlipidemia type: unspecified Qualified Code(s): E78.5 - Hyperlipidemia, unspecified (8) Chronic kidney disease, stage 3 Current Visit: Yes Status: Acute Assessment and plan: Renal function with mild increase in SCr at 1.22, and GFR 45 Likely secondary to dehydration Baseline renal function: SCr 0.9-1.1, GFR upper 40-50's Avoid nephrotoxins as able, renally dose medications if indicated (9) DVT prophylaxis Current Visit: Yes Status: Acute Assessment and plan: SQ heparin - Time Spent With Patient Total time spent is greater than 50% in coordination of care (as documented) at patient's floor/unit and/or counseling patient: <Kvng Davis - Last Filed: 01/20/19 12:50> Date of Encounter: 01/19/19 Internal Medicine - H&P: HPI History of present illness: Ms. Tilley is a 58 year old female All Systems PM: A 10-system review of systems was performed and is negative for pertinent findings except as documented above in the HPI. - Constitutional Vitals: Temp Pulse Resp BP Pulse Ox 98.1 F 78 14 110/70 97 01/20/19 11:23 01/20/19 11:23 01/20/19 11:23 01/20/19 11:23 01/20/19 11:23 Internal Med - H&P Results - Labs CBC & Chem 7: 01/20/19 02:15 01/20/19 02:15 Labs: Short CBC 01/19/19 01/20/19 Range/Units 13:45 02:15 WBC 11.3 H 8.8 (4.3-11.1) K/mcL Hgb 13.4 12.1 (11.5-15.4) g/dL Hct 39.0 34.7 L (35.3-44.9) % Plt Count 351 329 (140-400) K/mcL Neutrophils # 8.3 4.1 (1.6-8.9) K/mcL BMP 01/19/19 01/20/19 13:45 02:15 Sodium 136 136 Potassium 3.8 3.2 L Chloride 99 102 Carbon Dioxide 24 27 BUN 16 17 Creatinine 1.22 H 1.09 Glucose 119 H 138 H Calcium 10.0 9.1 Cardiac Enzymes 01/19/19 01/19/19 01/20/19 Range/Units 13:45 18:34 02:15 Troponin I < 0.03 < 0.03 < 0.03 (< 0.04) ng/mL 01/20/19 Range/Units 08:59 Troponin I < 0.03 (< 0.04) ng/mL Liver Function 01/19/19 Range/Units 13:45 Total Bilirubin 0.6 (0.3-1.0) mg/dL Direct Bilirubin 0.1 (0.0-0.2) mg/dL AST 18 (13-39) Units/L ALT 15 (7-52) Units/L Alkaline Phosphatase 80 (34-104) Units/L Albumin 4.6 (3.5-5.7) g/dL Urine 01/19/19 Range/Units 15:05 Urine Color Dark Yellow (Yellow) Urine Clarity Slightly Hazy (Clear) Urine pH 5.5 (5.0-8.0) pH Units Ur Specific [place] 1.019 (1.010-1.025) Urine Protein 30 H (Neg-Trace) mg/dL Urine Glucose (UA) Normal (Normal) mg/dL - Impressions ITS Impressions Chest X-Ray 01/19/19 12:59 IMPRESSION: No acute cardiopulmonary process. D/ / 01/19/2019 13:53:44 Morris Escalante MD / Yaquelin Baptiste Interpreting Provider: Morris Escalante MD - Time Spent With Patient Total time spent is greater than 50% in coordination of care (as documented) at patient's floor/unit and/or counseling patient: - Attending Attestation Please see event note of this date.
[2019-01-19] MEDS ORDERED: Acetaminophen 325 MG TABLET PO PRN (18:02)
[2019-01-19] MEDS ORDERED: Naloxone 0.4 MG/ML INJ IVP PRN (18:02)
[2019-01-19] MEDS ORDERED: Ondansetron ODT 4 MG TAB.RAPDIS SL PRN (18:02)
[2019-01-19] MEDS ORDERED: traMADol 50 MG TABLET PO PRN (18:07)
[2019-01-19] MEDS ORDERED: *HR* Dextrose 50 % in Water (Syg) 50 ML SYRINGE IVP PRN (18:09)
[2019-01-19] MEDS ORDERED: D5% in Water 1,000 ML IVC PRN (18:09)
[2019-01-19] MEDS ORDERED: Dextrose Gel 15 GM/37.5 ML TUBE PO PRN ×2 (18:09)
--- NOTE | 2019-01-19 18:22 | Event Note ---
Date of Encounter: 01/19/19 Time of Encounter: 18:00 I examined this patient and my medical decision-making was reviewed with the Resident Physician on 01/19/19. I agree with the documented findings, disposition and treatment plan as described except to the extent set forth below. Ms Tilley is 58 y/o female with known CAD s/p stent in 07/2018 presented to ED with complaints of intermittent CP, N/V and dyspnea. She was evaluated in ED and subsequently being placed in observation for further evaluation. Ms Tilley developed nausea and vomiting last Saturday. This was followed by R side chest discomfort - both exertional and nonexertional. In some ways feels like she did when she got the stent last year. Currently has no symptoms. Exam alert Comfortable Mucus membranes moist Heart reg and not tachy . No wheeze Lungs clear Abd soft and nontender No edema I/P 1. Possible [place] - pt with known cardiac disease. This event feels similar to prior when received stent. Place in observation. Troponins. Echo. Due to concern for similar symptoms will ask cardiology to eval patient with regards to need for further workup and what direction. 2. CAD Further diagnoses and plan as per H&P of today.
[2019-01-19 18:56] LABS: Estimated Average Glucose 169 mg/dl; Hemoglobin A1C 7.5 %
[2019-01-19] MEDS: *HR* Heparin 5,000 UNIT/ML VIAL SQ SCH (21:37)
[2019-01-19] MEDS: Famotidine 20 MG TABLET PO SCH (21:37)
[2019-01-19] MEDS: 0.9 % Sodium Chloride 1,000 ML IVC SCH (21:38)
[2019-01-19] MEDS: Aspirin 81 MG TAB.CHEW PO SCH (21:47)
[2019-01-20] MEDS: Insulin LISPRO 300 UNITS/3 ML VIAL SQ SCH ×3 (02:08→11:56)
[2019-01-20 02:43] LABS: Basophils # 0.1 K/mcL (0.0-0.2); Basophils % 1.5 %; Eosinophils # 0.5 K/mcL (0.0-0.6); Eosinophils % 5.5 %; Hematocrit 34.7 % (35.3-44.9); Hemoglobin 12.1 g/dL (11.5-15.4); Immature Granulocytes % 0.2 % (0-4); Lymphocytes # 3.3 K/mcL (0.6-4.6); Lymphocytes % 36.9 %; Mean Corpuscular HGB Conc 34.9 g/dL (31.6-35.5); Mean Corpuscular Hemoglobin 28.7 pg (28.0-33.3); Mean Corpuscular Volume 82.4 fL (83.0-100.0); Mean Platelet Volume 9.6 fL (9.4-12.4); Monocytes # 0.8 K/mcL (0.0-1.3); Monocytes % 9.2 %; Neutrophils # 4.1 K/mcL (1.6-8.9); Platelet Count 329 K/mcL (140-400); Red Blood Count 4.21 M/mcL (3.82-4.97); Segmented Neutrophils % 46.7 %
[2019-01-20 02:51] LABS: INR 1.1; Prothrombin Time 12.2 Seconds (9.4-12.1)
[2019-01-20 03:03] LABS: BUN/Creatinine Ratio 16 (6-26); Blood Urea Nitrogen 17 mg/dL (8-23); Calcium 9.1 mg/dL (8.6-10.3); Carbon Dioxide 27 mEq/L (23-29); Chloride 102 mEq/L (98-107); Glucose 138 mg/dL (70-105); Magnesium 1.3 mg/dL (1.6-2.6); Osmolality,Calculated 286 (280-300); Potassium 3.2 mEq/L (3.5-5.1); Sodium 136 mEq/L (136-145); eGFR For Non-African Americans 51 (> 60)
[2019-01-20] MEDS: *HR* Heparin 5,000 UNIT/ML VIAL SQ SCH ×3 (05:53→21:23)
[2019-01-20] MEDS: 0.9 % Sodium Chloride 1,000 ML IVC SCH (05:56)
[2019-01-20] MEDS: Famotidine 20 MG TABLET PO SCH ×2 (09:48→21:23)
--- NOTE | 2019-01-20 10:03 | Cardiology Consult Note ---
Date of Encounter: 01/20/19 Time of Encounter: 10:00 Assessment and Plan (1) Chest pain Current Visit: Yes Status: Acute Per Cardiology: Atypical symptoms. Actually appeared about her baseline. Patient had accompanying nausea with vomiting and dizziness and lightheadedness. Troponins negative 4. Catheterization film reviewed by Dr. Cohen with recommendations medical management. Will initiate long-acting nitrate of Imdur 30mg PO daily. Echo pending. Assuming no abnormal findings on echo plan will be for cardiology to signoff and follow-up in outpatient setting. Patient verbalized understanding and agreed with plan. All questions answered. Of note patient is DNR/CCA/DNI. Qualifiers: Chest pain type: unspecified Qualified Code(s): R07.9 - Chest pain, unspecified (2) CAD (coronary artery disease) Current Visit: Yes Status: Chronic Per Cardiology: Known history of CAD. Chest is December 2017. Last left heart catheterization July 2018 with drug-eluting stent to proximal RCA 80% lesion; has mid LAD 60% lesion with FFR of mid LAD 0.88-- clinically significant. On aspirin, Plavix, statin, beta pamela, MERRITT inhibitor. Qualifiers: Coronary Disease-Associated Artery/Lesion type: [place] artery [place] vs. transplanted heart: [place] heart Associated angina: with stable angina Qualified Code(s): I25.118 - Atherosclerotic heart disease of [place] coronary artery with other forms of angina pectoris (3) Hypomagnesemia Current Visit: Yes Status: Acute Per Cardiology: Magnesium noted to be 1.3. No arrhythmias noted on telemetry, sinus rhythm in the 70s. Being replaced per primary service. Discussion w patient/family: The assessment and plan as outlined above was discussed with the patient and/or family members who expressed understanding and agreement. All questions were answered. Thank you for involving us in the care of your patient. Please call with any questions. History of Present Illness Consult date: 01/20/19 Consult reason: CP Chief complaint: Dizziness History of present illness: Ms. Tilley is a 58 year old female with a relevant past medical history of DM 2, HTN, CKD 3A, HLD, CAD. Seen by Dr. Flynn with cardiology August 2018. Cardiology consult for chest pain. Patient reports her normal state of health up until this past Saturday while working at [employer] she developed episode of nausea with some vomiting accompanied with dizziness and lightheadedness. She reports some sharp stabbing sensations to her chest that last for a few seconds. She became a sharp stabbing sensations are not new for her at about baseline. They occur maybe once every few weeks. She reports another episode of nausea with vomiting and dizziness with lightheadedness while at work again at [employer] on Saturday. Currently denies any symptoms. She reports fatigue about baseline. Denies any change in shortness of breath with exertion. Denies any recent fever, chills, nausea, vomiting, diarrhea prior to these events. As any active bleeding or blood loss. Reports compliance with home medication regimen. Past Med Surg Social Fam HX - Past Medical History Attestation: Yes The following information was validated with the patient. Source: patient, old records reviewed Medical history: arthritis, diabetes, GERD, hyperlipidemia, hypertension, renal disease Psychiatric history: no psych history - Past Surgical History Surgical History: , cholecystectomy, orthopedic, other, other Additional surgical history: Heart cath 08/14 with 1 stent placed, plate in neck, 3 rotator cuff surgeries - Social History Smoking Status: Never smoker Smokeless Tobacco Status: No Alcohol use: none Drug use: none - Family History Father Family Member Ethnicity: Non- Living Status: Hx Family Cardiac Disorders: Yes Hx Family Respiratory Disorders: No Hx Family Cancer: No Hx Family GI Disorders: No Hx Family Endocrine Disorder: No Hx Family Neuromuscular Disorders: No Hx Family Neurologic Disorders: No Hx Family HEENT Disorders: No Hx Family Autoimmune Disorders: No Medications and Allergies Enalapril Maleate [Vasotec] 5 mg PO DAILY 02/21/16 [History] Metformin HCl [Metformin ER Gastric] 1,500 mg PO HS 02/21/16 [History] Ranitidine HCl [Heartburn Relief] 150 mg PO BID 02/21/16 [History] Cyclobenzaprine [Flexeril] 10 mg PO HS 08/13/18 [History] Tramadol HCl [Ultram] 50 mg PO TID PRN 08/13/18 [History] Aspirin 81 mg PO DAILY 01/19/19 [History] Atorvastatin [Lipitor] 40 mg PO HS 01/19/19 [History] Chlorthalidone 25 mg PO DAILY 01/19/19 [History] Clopidogrel [Plavix] 75 mg PO DAILY 01/19/19 [History] Metoprolol [Lopressor] 12.5 mg PO BID 01/19/19 [History] Allergy/AdvReac Type Severity Reaction Status Date / Time Sulfa (Sulfonamide Allergy Hives Verified 09/08/18 10:24 Antibiotics) nitrofurantoin AdvReac Vomiting Verified 09/08/18 10:24 [From Macrobid] All Systems Review: The remainder of the systems were reviewed and are negative - Constitutional Constitutional: fatigue - Cardiovascular Cardiovascular: as per HPI, chest pain at rest, lightheadedness - Gastrointestinal Gastrointestinal: nausea Physical Examination Vital Signs, Last 4 Hours Temp Pulse Resp BP Pulse Ox 01/20/19 07:05 98.1 F 72 16 107/67 97 General: Conversant, No Apparent Distress HEENT: Atraumatic, Normocephaly, Mucus Membranes Moist Neck: No JVD, Normal carotid pulses Cardiac: Reg Rate and Rhythm, Normal S1 and S2, No Murmur Lungs: Normal Breath Sounds, No Wheeze, Rales, Rhonchi Neuro: Alert and responsive, No focal deficits noted Abdomen: Soft, Non-Tender Skin: No rashes noted on visualized skin Musculoskeletal: No Chest Wall Tenderness Extremities: No Clubbing, No Cyanosis, No Edema, Normal Pulses Results 01/20/19 02:15 01/20/19 02:15 Lab Results Laboratory Tests 01/19/19 01/19/19 01/19/19 13:45 13:45 18:34 Hgb Hct INR Creatinine 1.22 H Est GFR (Non-Af Amer) Magnesium AST 18 ALT 15 Troponin I < 0.03 < 0.03 B-Natriuretic Peptide 18 01/20/19 01/20/19 01/20/19 02:15 02:15 02:15 Hgb 12.1 Hct 34.7 L INR 1.1 Creatinine Est GFR (Non-Af Amer) Magnesium AST ALT Troponin I < 0.03 B-Natriuretic Peptide 01/20/19 01/20/19 02:15 08:59 Hgb Hct INR Creatinine 1.09 Est GFR (Non-Af Amer) 51 L Magnesium 1.3 L AST ALT Troponin I < 0.03 B-Natriuretic Peptide ITS Impressions Chest X-Ray 01/19/19 12:59 IMPRESSION: No acute cardiopulmonary process. D/ / 01/19/2019 13:53:44 Morris Escalante MD / Yaquelin Baptiste Interpreting Provider: Morris Escalante MD Active Medications Acetaminophen (Tylenol) 650 mg PO Q6HR PRN PRN Reason: Mild Pain/Fever Stop: 07/21/19 18:03 Aspirin (Aspirin) 81 mg PO [facility] Stop: 07/21/19 21:16 Last Admin: 01/19/19 21:47 Dose: Not Given Documented by: Atorvastatin Calcium (Lipitor) 40 mg PO [facility] Stop: 07/21/19 21:01 Last Admin: 01/19/19 21:37 Dose: 40 mg Documented by: Chlorthalidone (Chlorthalidone) 25 mg PO [facility] Stop: 07/21/19 21:31 Last Admin: 01/19/19 21:47 Dose: 25 mg Documented by: Clopidogrel Bisulfate (Plavix) 75 mg PO [facility] Stop: 07/21/19 21:31 Last Admin: 01/19/19 21:47 Dose: 75 mg Documented by: Cyclobenzaprine HCl (Flexeril) 10 mg PO [facility] Stop: 07/21/19 21:01 Last Admin: 01/19/19 21:38 Dose: 10 mg Documented by: Dextrose/Water (Dextrose 50% (Syg)) 25 ml IVP AD PRN PRN Reason: Hypoglycemia Stop: 07/21/19 18:10 Docusate Sodium (Colace) 100 mg PO BID PRN PRN Reason: Constipation Stop: 07/21/19 21:01 Famotidine (Pepcid) 20 mg PO BID [facility] Stop: 07/21/19 21:01 Last Admin: 01/20/19 09:48 Dose: 20 mg Documented by: Glucagon (Glucagen) 1 mg IM ONCE PRN PRN Reason: Hypoglycemia Stop: 07/21/19 18:10 Glucose (Gluctose) 15 gm PO ONCE PRN PRN Reason: Hypoglycemia Stop: 07/21/19 18:10 Glucose (Gluctose) 30 gm PO ONCE PRN PRN Reason: Hypoglycemia Stop: 07/21/19 18:10 Heparin Sodium (Porcine) (Heparin) 5,000 unit SQ Q8HCO [facility] Stop: 07/21/19 22:01 Last Admin: 01/20/19 13:33 Dose: 5,000 unit Documented by: Dextrose (Dextrose 5%) 1,000 mls @ 100 mls/hr IVC .Q10H PRN PRN Reason: HYPOGLYCEMIA Stop: 07/21/19 18:10 Insulin Human Lispro (Humalog) 0 units SQ Q6HR [facility]; Protocol Stop: 07/22/19 00:01 Last Admin: 01/20/19 11:56 Dose: Not Given Documented by: Isosorbide Mononitrate (Imdur) 30 mg PO DAILY [facility] Stop: 07/22/19 14:46 Lisinopril (Zestril) 5 mg PO HS [facility] Stop: 07/21/19 21:31 Last Admin: 01/19/19 21:47 Dose: 5 mg Documented by: Metoprolol Tartrate (Lopressor) 12.5 mg PO BID [facility] Stop: 07/21/19 21:01 Last Admin: 01/20/19 09:48 Dose: 12.5 mg Documented by: Naloxone HCl (Narcan) 0.4 mg IVP Q2MPRN PRN PRN Reason: SEE COMMENTS Stop: 07/21/19 18:03 Ondansetron HCl (Zofran Odt) 4 mg SL Q8HR PRN PRN Reason: Nausea And Vomiting Stop: 07/21/19 18:03 Tramadol HCl (Ultram) 50 mg PO TID PRN PRN Reason: Pain Stop: 07/21/19 18:08 Last Admin: 01/19/19 21:37 Dose: 50 mg Documented by: - Imaging and Cardiology Stress Test: report reviewed Echo: pending, report reviewed Cardiac cath: report reviewed - EKG Interpretation EKG results cardiology: personally reviewed, no diagnostic ischemia Consult Discharge Plan - Plan Referrals: Sera Tapia MD [Primary Care Provider] - 01/23/19 11:45 am
[2019-01-20] MEDS: Isosorbide MONOnitrate (24 HR) 30 MG TAB.ER.24H PO SCH (15:22)
--- NOTE | 2019-01-20 16:30 | Internal Med Progress Note ---
<Chris Stewart - Last Filed: 01/20/19 17:15> Hospitalist Progress Note - Encounter Date of Encounter: 01/20/19 Time of Encounter: 08:32 - Subjective Interval History: Patient seen and examined at bedside. Denies any further episodes of chest pain, diaphoresis, lightheadedness, nausea, or vomiting throughout the night. States that she is tired but no other complaints. - Exam Vitals: Temp Pulse Resp BP Pulse Ox 97.5 F L 72 16 115/72 96 01/20/19 14:45 01/20/19 14:45 01/20/19 14:45 01/20/19 14:45 01/20/19 14:45 Exam: GEN: No acute distress, A&O3 HEAD: Atraumatic, normocephalic EYES: Pupils symmetric, sclera white, conjunctiva pink HEART: RRR, normal S1 and S2, no murmurs LUNGS: Clear to auscultation bilaterally, no wheezes, rhonchi, or crackles ABD: Soft, nontender, nondistended, bowel sounds present EXT: No edema noted, pulses 2/4 NEURO: No focal deficits, cooperative with exam - Assessment and Plan (1) Chest pain Current Visit: Yes Status: Acute Assessment and Plan: Atypical chest pain in the setting of CAD Troponin negative x4 Hx of CAD and ALEKS to RCA in Jul 2018 - at that time also had negative trop, normal EKG, and felt dehydrated - had a negative stress 6 months prior to [facility] BP controlled, no tachycardia Continue ASA and plavix Echo pending Cardiology recommended adding Imdur and no further imaging unless changes seen on echo Anticipate discharge tomorrow if echo stable (2) CAD (coronary artery disease) Current Visit: Yes Status: Chronic Assessment and Plan: Hx of CAD Echo Jul 2018: LVEF 60-65%, mild concentric LVH, mild LV DD, and trace OK [facility] Jul 2018: 80% blockage in RCA with ALEKS placed, 60% blockage noted in LAD Stress December 2017: negative for ischemia or infarct Continue ASA and Plavix (3) Nausea and vomiting Current Visit: Yes Status: Acute Assessment and Plan: Improving, continue PRN zofran (4) Diabetes Current Visit: Yes Status: Chronic Assessment and Plan: Hold metformin Place on low-dose SSI (5) Lightheaded Current Visit: Yes Status: Acute Assessment and Plan: Improving, continue to monitor (6) Hypertension Current Visit: Yes Status: Chronic Assessment and Plan: Controlled at this time Continue home medications (7) Hyperlipidemia Current Visit: Yes Status: Acute Assessment and Plan: Continue home med (8) Chronic kidney disease, stage 3 Current Visit: Yes Status: Acute Assessment and Plan: Renal function at baseline now (9) DVT prophylaxis Current Visit: Yes Status: Acute Assessment and Plan: SQ heparin - Time Spent with Patient Total time spent is greater than 50% in coordination of care (as documented) at patient's floor/unit and/or counseling patient: Internal Medicine: Result - Labs CBC & Chem 7: 01/20/19 02:15 01/20/19 02:15 Labs: Short CBC 01/20/19 Range/Units 02:15 WBC 8.8 (4.3-11.1) K/mcL Hgb 12.1 (11.5-15.4) g/dL Hct 34.7 L (35.3-44.9) % Plt Count 329 (140-400) K/mcL Neutrophils # 4.1 (1.6-8.9) K/mcL BMP 01/20/19 02:15 Sodium 136 Potassium 3.2 L Chloride 102 Carbon Dioxide 27 BUN 17 Creatinine 1.09 Glucose 138 H Calcium 9.1 Cardiac Enzymes 01/19/19 01/20/19 01/20/19 Range/Units 18:34 02:15 08:59 Troponin I < 0.03 < 0.03 < 0.03 (< 0.04) ng/mL - ABG Interpretation ABG results: PT/INR, D-dimer PT 12.2 Seconds (9.4-12.1) H 01/20/19 02:15 Consult Discharge Plan - Plan Referrals: Sera Tapia MD [Primary Care Provider] - 01/23/19 11:45 am <Kvng Davis - Last Filed: 01/20/19 17:30> Hospitalist Progress Note - Encounter Date of Encounter: 01/20/19 - Exam Vitals: Temp Pulse Resp BP Pulse Ox 97.5 F L 72 16 115/72 96 01/20/19 14:45 01/20/19 14:45 01/20/19 14:45 01/20/19 14:45 01/20/19 14:45 - Assessment and Plan (1) Chest pain Current Visit: Yes Status: Suspected (2) Chronic kidney disease, stage 3 Current Visit: Yes Status: Chronic (3) Hyperlipidemia Current Visit: Yes Status: Acute (4) Hypomagnesemia Current Visit: Yes Status: Acute (5) CAD (coronary artery disease) Current Visit: Yes Status: Chronic (6) Hypertension Current Visit: Yes Status: Chronic (7) Diabetes Current Visit: Yes Status: Chronic - Time Spent with Patient Total time spent is greater than 50% in coordination of care (as documented) at patient's floor/unit and/or counseling patient: Internal Medicine: Result - Labs CBC & Chem 7: 01/20/19 02:15 01/20/19 02:15 Labs: Short CBC 01/20/19 Range/Units 02:15 WBC 8.8 (4.3-11.1) K/mcL Hgb 12.1 (11.5-15.4) g/dL Hct 34.7 L (35.3-44.9) % Plt Count 329 (140-400) K/mcL Neutrophils # 4.1 (1.6-8.9) K/mcL BMP 01/20/19 02:15 Sodium 136 Potassium 3.2 L Chloride 102 Carbon Dioxide 27 BUN 17 Creatinine 1.09 Glucose 138 H Calcium 9.1 Cardiac Enzymes 01/19/19 01/20/19 01/20/19 Range/Units 18:34 02:15 08:59 Troponin I < 0.03 < 0.03 < 0.03 (< 0.04) ng/mL - ABG Interpretation ABG results: PT/INR, D-dimer PT 12.2 Seconds (9.4-12.1) H 01/20/19 02:15 - Impressions Impressions Chest X-Ray 01/19/19 12:59 IMPRESSION: No acute cardiopulmonary process. D/ / 01/19/2019 13:53:44 Morris Escalante MD / Yaquelin Baptiste Interpreting Provider: Morris Escalante MD - Attending Attestation I examined this patient and my medical decision-making was reviewed with the Resident Physician on 01/20/19. I agree with the documented findings, disposition and treatment plan as described except to the extent set forth below. Ms Tilley is currently in observation for chest pain. She remains moderate risk at this time. Ms Tilley is resting in bed. She has no further pain. She is awaiting echo. Exam alert Comfortable Mucus membranes dry Heart not tachy No wheeze Abd soft I/P 1. Chest pain - awaiting echo 2. CAD Further diagnoses and plan as above. <Chris Stewart - Last Filed: 01/20/19 17:15> (1) Chest pain Qualifiers: Chest pain type: unspecified Qualified Code(s): R07.9 - Chest pain, unspecified (2) CAD (coronary artery disease) Qualifiers: Coronary Disease-Associated Artery/Lesion type: [place] artery [place] vs. transplanted heart: [place] heart Associated angina: with stable angina Qualified Code(s): I25.118 - Atherosclerotic heart disease of [place] coronary artery with other forms of angina pectoris (3) Nausea and vomiting Qualifiers: Vomiting type: unspecified Vomiting Intractability: non-intractable Qualified Code(s): R11.2 - Nausea with vomiting, unspecified (4) Diabetes Qualifiers: Diabetes mellitus type: type 2 Diabetes mellitus mcc insulin use: without mcc use Diabetes mellitus complication status: without complication Qualified Code(s): E11.9 - Type 2 diabetes mellitus without complications (6) Hypertension Qualifiers: Hypertension type: essential hypertension Qualified Code(s): I10 - Essential (primary) hypertension (7) Hyperlipidemia Qualifiers: Hyperlipidemia type: unspecified Qualified Code(s): E78.5 - Hyperlipidemia, unspecified <Kvng Davis - Last Filed: 01/20/19 17:30> (1) Chest pain Qualifiers: Chest pain type: chest pain due to myocardial ischemia Ischemic chest pain type: unstable angina pectoris Qualified Code(s): I20.0 - Unstable angina (3) Hyperlipidemia Qualifiers: Hyperlipidemia type: mixed hyperlipidemia Qualified Code(s): E78.2 - Mixed h yperlipidemia (5) CAD (coronary artery disease) Qualifiers: Coronary Disease-Associated Artery/Lesion type: [place] artery [place] vs. transplanted heart: [place] heart Associated angina: with unstable angina Qualified Code(s): I25.110 - Atherosclerotic heart disease of [place] coronary artery with unstable angina pectoris (6) Hypertension Qualifiers: Hypertension type: essential hypertension Qualified Code(s): I10 - Essential (primary) hypertension (7) Diabetes Qualifiers: Diabetes mellitus type: type 2 Diabetes mellitus hand coper insulin use: without mcc use Diabetes mellitus complication status: without complication Qualified Code(s): E11.9 - Type 2 diabetes mellitus without complications
[2019-01-20] MEDS ORDERED: Insulin LISPRO 300 UNITS/3 ML VIAL SQ SCH (21:00)
[2019-01-20] MEDS: Aspirin 81 MG TAB.CHEW PO SCH (21:23)
--- NOTE | 2019-01-20 23:02 | Electrocardiograph Report ---
[address] [place] [address] Test Date: 2019-01-19 Pat Name: Geri Tilley Department: 104 Room: 3B48 Gender: F [place]: : [id number] Requested By: Ric Guthrie Order Number: [id number] Reading MD: Sera Alvarado Measurements Intervals [place] Rate: 103 P: 36 NV: 158 QRS: -9 QRSD: 97 T: 22 QT: 338 QTc: 398 Interpretive Statements SINUS TACHYCARDIA LOW QRS VOLTAGE IN PRECORDIAL LEADS POSSIBLE ANTERIOR MYOCARDIAL INFARCTION, PROBABLY OLD INFERIOR MYOCARDIAL INFARCTION, PROBABLY OLD Electronically Signed On 01-20-2019 23:01:09 EDT by Sera Alvarado
[2019-01-21] MEDS: *HR* Heparin 5,000 UNIT/ML VIAL SQ SCH (06:08)
[2019-01-21] MEDS: Insulin LISPRO 300 UNITS/3 ML VIAL SQ SCH ×2 (07:57→11:51)
[2019-01-21] MEDS: Famotidine 20 MG TABLET PO SCH (08:03)
[2019-01-21] MEDS: Isosorbide MONOnitrate (24 HR) 30 MG TAB.ER.24H PO SCH (08:03)
[2019-01-21 08:55] LABS: BUN/Creatinine Ratio 16 (6-26); Blood Urea Nitrogen 17 mg/dL (8-23); Calcium 9.3 mg/dL (8.6-10.3); Carbon Dioxide 25 mEq/L (23-29); Chloride 103 mEq/L (98-107); Glucose 133 mg/dL (70-105); Magnesium 1.4 mg/dL (1.6-2.6); Osmolality,Calculated 287 (280-300); Potassium 3.8 mEq/L (3.5-5.1); Sodium 137 mEq/L (136-145); eGFR For Non-African Americans 52 (> 60)
--- NOTE | 2019-01-21 11:06 | Event Note ---
Date of Encounter: 01/21/19 Time of Encounter: 11:03 - Cardiology Event Note Limited TTE LVEF 65%. Asymmetric basal septal hypertrophy. Normal RV structure and function. Full TTE 07/2018 no significant valvular dysfunction, mild MI. Per consult note, no significant findings on TTE, will sign off with outpt fo llow-up in 3-4 weeks. Please reconsult PRN.
[2019-01-21 11:25] VITALS: BP 112/68
--- NOTE | 2019-01-21 11:59 | Discharge Summary ---
- NOTES TO OUTPATIENT PROVIDER Notes to Outpatient Provider: Chest pain for which cardio rec'd medical management and started Imdur, has cardio f/u 3-4 weeks Date of Encounter: 01/21/19 Time of Encounter: 11:56 Hospital course: Dear Doctors, I recently had the opportunity to care for this patient during their recent hospital stay at [facility]. Geri Tilley is a 58 F w hx CAD, HTN, DM2, CKD3a, who presented at time of admission with episodic R-sided chest pain associated with lightheadedness, diaphoresis, and nausea/vomiting, reminiscent of previous chest pain which required stent. Initial ECG and trops unremarkable. Pt admitted for further evaluation. In the hospital, cardiology was consulted who reviewed pt's recent [facility] images (RCA 80% received stent and LAD 60%) and recommended medical management at this time. Imdur was added. No further recurrence of chest pain. A TTE was unremarkable for wall motion changes. Pt will be discharged to follow up with PCP and Cardio. Dx: angina Pertinent tests/consults: Cardio consult, TTE Follow up: PCP 1 week, Cardio 3-4 weeks Tests pending: none Med changes: new Imdur 30 daily Mental status: awake, fully oriented Code status: DNRCC-A DNI It has been my pleasure participating in this patient's care. Please contact me with any questions or concerns regarding their hospital stay. Sincerely, Joaquin Floyd MD - Discharge Medications Prescriptions: New Isosorbide MONOnitrate (24 HR) [Imdur] 30 mg PO DAILY #30 tab.er.24h Continued Ranitidine HCl [Heartburn Relief] 150 mg PO BID Metformin HCl [Metformin ER Gastric] 1,500 mg PO HS Enalapril Maleate [Vasotec] 5 mg PO DAILY Cyclobenzaprine [Flexeril] 10 mg PO HS Tramadol HCl [Ultram] 50 mg PO TID PRN PRN Reason: Pain Aspirin 81 mg PO DAILY Atorvastatin [Lipitor] 40 mg PO HS Chlorthalidone 25 mg PO DAILY Clopidogrel [Plavix] 75 mg PO DAILY Metoprolol [Lopressor] 12.5 mg PO BID Home Medications: Enalapril Maleate [Vasotec] 5 mg PO DAILY 02/21/16 [History] Metformin HCl [Metformin ER Gastric] 1,500 mg PO HS 02/21/16 [History] Ranitidine HCl [Heartburn Relief] 150 mg PO BID 02/21/16 [History] Cyclobenzaprine [Flexeril] 10 mg PO HS 08/13/18 [History] Tramadol HCl [Ultram] 50 mg PO TID PRN 08/13/18 [History] Aspirin 81 mg PO DAILY 01/19/19 [History] Atorvastatin [Lipitor] 40 mg PO HS 01/19/19 [History] Chlorthalidone 25 mg PO DAILY 01/19/19 [History] Clopidogrel [Plavix] 75 mg PO DAILY 01/19/19 [History] Metoprolol [Lopressor] 12.5 mg PO BID 01/19/19 [History] Isosorbide MONOnitrate (24 HR) [Imdur] 30 mg PO DAILY #30 tab.er.24h 01/21/19 [Rx] Allergies/Adverse Reactions: Allergy/AdvReac Type Severity Reaction Status Date / Time Sulfa (Sulfonamide Allergy Hives Verified 09/08/18 10:24 Antibiotics) nitrofurantoin AdvReac Vomiting Verified 09/08/18 10:24 [From Macrobid] Date of admission: 01/19/19 16:04 Primary care physician: Sera Tapia MD Consults: 01/19/19 18:11 Consult to Cardiology [CONS] Routine Comment: Consulting Provider: Cardiology Yamini Reason for Consult: 58 yo F with hx of CAD admitted with recent episodes of chest pain, N/V, diaphoresis, and feels dehydrated. Negative trop, EKG without ischemic changes. Negative stress last December, but then stent placed in Jul. At that time had negative trop, no EKG changes, and felt dehydrated. Consult for possible stress testing vs repeat [facility] Call Completed: No - Constitutional Vitals: Temp Pulse Resp BP Pulse Ox 98.0 F 77 16 112/68 97 01/21/19 11:23 01/21/19 11:23 01/21/19 11:23 01/21/19 11:23 01/21/19 11:23 Exam: GEN: No acute distress, A&O3 HEART: RRR, normal S1 and S2, no murmurs LUNGS: Clear to auscultation bilaterally, no wheezes or crackles ABD: Soft, nontender EXT: No edema noted, DP pulses 2+ NEURO: No focal deficits, cooperative with exam - Patient Status Disposition: Home, Self-Care Condition: Fair Functional capacity at discharge: independent ambulation Overall status at discharge: patient is back to baseline - Discharge Instructions Follow Up With: Sera Tapia MD [Primary Care Provider] - 01/23/19 11:45 am - Diet and Activity Activity: resume usual activities as tolerated Diet: advance to your usual diet
== END 2019-01-21 12:42 | disposition home or self-care (01) ==
LOC: EMEROOARM 12:28 → 3BNU 12:28 → SUATTDRO 16:04 → 3BNU 16:20
PROVIDERS: ADMIT Internal Medicine; ATTEND Internal Medicine